=== PATIENT | female | born 1955 | race Caucasian/White ===

== ENCOUNTER 2020-06-03 08:42 | Outpatient (CLI) | payer OTHER, SELFPAY ==
--- NOTE | ~2020-06-03 | MM_ITS ---
EXAMINATION: MM screening [facility] BI w hira HISTORY: Screening mammogram TECHNIQUE: Craniocaudal and mediolateral oblique 3-D tomosynthesis images were obtained and synthetic 2-D images were generated. CAD analysis was submitted and interpreted. COMPARISON: 05/24/2019, 05/10/2018, 05/05/2017 BREAST PARENCHYMAL COMPOSITION: There are scattered areas of fibroglandular density. FINDINGS: There is no evidence of suspicious mass, calcification, or architectural distortion to sugg est malignancy in either breast. There has been no suspicious interval change. IMPRESSION: 1. No mammographic evidence of malignancy. 2. Recommend routine screening mammography in one year. BI-RADS Category 1: Negative Reviewed, dictated and finalized at location A.
--- NOTE | ~2020-06-03 | DEXA_ITS ---
Bone Density Report Name: Natividad Byrd Age: 64 Sex: Female Ethnicity: White Date of : 1955 Indication: osteopenia; hysterectomy; Referring Provider: Sheeba Samson Study: Bone densitometry was performed. Exam Date: June 03, 2020 Accession number: [id number] Bone Density: Region BMD T-score Z-score Classification AP Spine (L1-L4) 0.879 -1.5 0.1 Osteopenia Femoral Neck (Left) 0.765 -0.8 0.6 Normal Total Hip (Left) 0.828 -0.9 0.2 Normal Total Hip Bilateral Avg 0.863 -0.6 0.4 Normal Femoral Neck (Right) 0.721 -1.1 0.2 Osteopenia Total Hip (Right) 0.897 -0.4 0.7 Normal World Health Organization criteria for BMD impression classify patients as: Normal (T-score at or above -1.0), Osteopenia (T-score between -1.0 and -2.5), or Osteoporosis (T-score at or below -2.5). 10-year Fracture Risk(1): Major Osteoporotic Fracture 7.8% Hip Fracture 0.5% Reported Risk Factors: [place] (), Neck BMD=0.721, BMI=25.6 (1) FRAX(R) Version 3.08. Fracture probability calculated for an untreated patient. Fracture probability may be lower if the patient has received treatment. Previous Exams: Region Exam Age BMD T-score BMD Change BMD Change Date g/cm2 vs Baseline vs Previous AP Spine(L1-L4) 06/03/2020 64 0.879 -1.5 -0.054(-5.8%)# 0.003(0.3%) 05/10/2018 62 0.876 -1.6 -0.057(-6.1%)# -0.002(-0.2%) 04/13/2015 59 0.877 -1.5 -0.056(-6.0%)# -0.056(-6.0%)# 12/14/2011 56 0.933 -1.0 Total Hip(Left) 06/03/2020 64 0.828 -0.9 -0.066(-7.3%)# -0.043(-4.9%)* 05/10/2018 62 0.871 -0.6 -0.023(-2.6%)# 0.005(0.6%) 04/13/2015 59 0.866 -0.6 -0.028(-3.1%)# -0.028(-3.1%)# 12/14/2011 56 0.894 -0.4 Total Hip(Right) 06/03/2020 64 0.897 -0.4 -0.014(-1.5%)# 0.004(0.4%) 05/10/2018 62 0.893 -0.4 -0.018(-2.0%)# 0.009(1.1%) 04/13/2015 59 0.884 -0.5 -0.027(-3.0%)# -0.027(-3.0%)# 12/14/2011 56 0.911 -0.3 *Denotes significance at 95% confidence level, LSC for AP Spine = 0.022 g/cm2, LSC for Total Hip = 0.027 g/cm2 Clinical Information Provided by Patient: Has used the following medications: Vitamin D, Calcium Has the following medical conditions: Hysterectomy Patient maximum height was 67 Menopause Age: 53 Onset of menses at age 13 Number of children 2 Impression: The patient has low bone mass, based on the Total Spine T-score. The patient has an estimated ten-year risk of hip fracture of
== END 2020-06-03 08:43 | disposition home or self-care (01) ==
LOC: ANHIMG 08:44
PROVIDERS: PCP Internal Medicine; Visit Provider Student in an Organized Health Care Education/Training Program
DX: Z12.31 Encounter for screening mammogram for malignant neoplasm of breast (principal); Z78.0 Asymptomatic menopausal state; M85.88 Other specified disorders of bone density and structure, other site; M85.851 Other specified disorders of bone density and structure, right thigh
CPT/HCPCS: 77063; 77067; 77080

== ENCOUNTER 2021-06-13 09:59 | Outpatient (CLI) | payer OTHER, SELFPAY ==
--- NOTE | ~2021-06-13 | MM_ITS ---
EXAMINATION: MM screening [facility] BI w hira HISTORY: Screening mammogram TECHNIQUE: Craniocaudal and mediolateral oblique 3-D tomosynthesis images were obtained and synthetic 2-D images were generated. CAD analysis was submitted and interpreted. COMPARISON: 06/03/2020, 05/24/2019, 05/10/2018 BREAST PARENCHYMAL COMPOSITION: There are scattered areas of fibroglandular density. FINDINGS: There is no evidence of suspicious mass, calcification, or architectural distortion to sugg est malignancy in either breast. There has been no suspicious interval change. IMPRESSION: 1. No mammographic evidence of malignancy. 2. Recommend routine screening mammography in one year. BI-RADS Category 1: Negative Reviewed, dictated and finalized at location A.
== END 2021-06-13 10:00 | disposition home or self-care (01) ==
LOC: ANHIMG 10:01
PROVIDERS: PCP Internal Medicine; Visit Provider Student in an Organized Health Care Education/Training Program
DX: Z12.31 Encounter for screening mammogram for malignant neoplasm of breast (principal)
CPT/HCPCS: 77063; 77067

== ENCOUNTER 2021-07-09 06:44 | Day surgery (SDC) | payer OTHER, SELFPAY ==
[2021-06-26 12:54] VITALS: BMI 25.9
[2021-07-09 10:37] VITALS: BP 124/71; PULSE 65; RESP 18; TEMP 36.3; O2SAT 100; BMI 26.0
--- NOTE | 2021-07-09 10:45 | PM.HPGS ---
History of Present Illness History of Present Illness Consent: Risks, benefits, and alternatives have been discussed and questions answered. Patient agrees to proceed with procedure. Chief complaint: neoplasm screening Narrative: Natividad Byrd is a 65 year old female Referred for colon cancer screening. Review of Systems Review of Systems: All systems reviewed & are unremarkable except as noted in HPI and below PMFSH Past Medical History Medical History Hyperlipidemia Surgical History Surgical History History of section x 2 History of dilation and curettage History of hysterectomy Family History Family History Mother Patient's mother is in good health Father Patient's father is in good health Grandparent Diabetes mellitus Carcinoma of colon Social History Social History Smoking status: Never smoker Second hand tobacco smoke exposure: No Alcohol intake: current Alcohol use details: 2x Monthly Substance use: never Living arrangements: with family Spiritual care concerns: No Meds Home Medications and Allergies Home Medications Medication Instructions Recorded Confirmed Type adapalene 0.3 % topical gel 1 applic TOPICAL QPM 03/19/20 07/09/21 History ascorbate calcium (vitamin C) 500 500 mg PO DAILY 03/19/20 07/09/21 History mg tablet calcium carbonate 600 mg calcium 1,200 mg PO DAILY tablet 03/19/20 07/09/21 History (1,500 mg) tablet cholecalciferol (vitamin D3) 25 50 mcg PO DAILY cap 03/19/20 07/09/21 History mcg (1,000 unit) capsule flaxseed oil 1,300 mg-omega 3,6,9 1 cap PO DAILY 03/19/20 07/09/21 History 845 mg-117 mg-117 mg capsule fluticasone propionate 50 2 spray NASAL 2XW 03/19/20 07/09/21 History mcg/actuation nasal spray,suspension loratadine 10 mg tablet 10 mg PO DAILY PRN 03/19/20 07/09/21 History magnesium oxide 250 mg PO DAILY 03/19/20 07/09/21 History psyllium husk 0.52 gram capsule 0.52 gm PO DAILY 03/19/20 07/09/21 History atorvastatin 20 mg tablet 20 mg PO DAILY #90 tablet 05/08/21 07/09/21 Rx estradiol [Estrace] 1 g VAGINAL 2XW 06/26/21 07/09/21 History Allergies Allergy/AdvReac Type Severity Reaction Status Date / Time azithromycin Allergy Mild Unknown Verified 07/09/21 10:36 cat dander Allergy Mild Unknown Verified 07/09/21 10:36 sulfamethoxazole Allergy Mild Unknown Verified 07/09/21 10:36 cefuroxime AdvReac Unknown MUSCLE PAIN Verified 07/09/21 10:36 mold AdvReac Other Verified 07/09/21 10:36 Vital Signs Vital Signs - 24 hr 07/09/21 10:37 Temperature 36.3 C L Pulse Rate 65 Respiratory Rate 18 Blood Pressure 124/71 Pulse Oximetry 100 Exam Resp: Auscultation: clear to auscultation bilaterally Cardio: Rate: regular rate Rhythm: regular rhythm GI: GI Palp: Yes Soft to palpation and No Tenderness to palpation present (GI) Assessment and Plan Assessment and plan (1) Colon cancer screening: Code(s): Z12.11 - Encounter for screening for malignant neoplasm of colon Status: Acute Assessment and Plan: Colonoscopy with possible biopsy or polypectomy or cautery or injection of substances.
[2021-07-09] MEDS: LACTATED RINGERS 1,000 ML 150 ML IV CONT (10:47)
--- NOTE | 2021-07-09 11:01 | WPDANESEPPF ---
Anes - Initial Pre Proc Eval Procedure: Operation Date: 07/09/21 11:30 Proposed Procedures p Screening Colonoscopy - Parminder Parr MD Date/Time: 07/09/21 11:01 Surgeon: Parminder Parr MD Pre Op Diagnosis: neoplasm screening Patient Data Age: 65 Gender: F Height: 1.7 m Weight: 75.4 kg Last Vital Signs Temp 36.3 C L 07/09/21 10:37 Pulse 65 07/09/21 10:37 Resp 18 07/09/21 10:37 BP 124/71 07/09/21 10:37 Pulse Ox 100 07/09/21 10:37 Allergies Allergy/AdvReac Type Severity Reaction Status Date / Time azithromycin Allergy Mild Unknown Verified 07/09/21 10:36 cat dander Allergy Mild Unknown Verified 07/09/21 10:36 sulfamethoxazole Allergy Mild Unknown Verified 07/09/21 10:36 cefuroxime AdvReac Unknown MUSCLE PAIN Verified 07/09/21 10:36 mold AdvReac Other Verified 07/09/21 10:36 Home Medications Medication Instructions Recorded Confirmed Type adapalene 0.3 % topical gel 1 applic TOPICAL QPM 03/19/20 07/09/21 History ascorbate calcium (vitamin C) 500 500 mg PO DAILY 03/19/20 07/09/21 History mg tablet calcium carbonate 600 mg calcium 1,200 mg PO DAILY tablet 03/19/20 07/09/21 History (1,500 mg) tablet cholecalciferol (vitamin D3) 25 50 mcg PO DAILY cap 03/19/20 07/09/21 History mcg (1,000 unit) capsule flaxseed oil 1,300 mg-omega 3,6,9 1 cap PO DAILY 03/19/20 07/09/21 History 845 mg-117 mg-117 mg capsule fluticasone propionate 50 2 spray NASAL 2XW 03/19/20 07/09/21 History mcg/actuation nasal spray,suspension loratadine 10 mg tablet 10 mg PO DAILY PRN 03/19/20 07/09/21 History magnesium oxide 250 mg PO DAILY 03/19/20 07/09/21 History psyllium husk 0.52 gram capsule 0.52 gm PO DAILY 03/19/20 07/09/21 History atorvastatin 20 mg tablet 20 mg PO DAILY #90 tablet 05/08/21 07/09/21 Rx estradiol [Estrace] 1 g VAGINAL 2XW 06/26/21 07/09/21 History Patient hx anesthesia problems: none Family hx anesthesia problems: none PMFSH Past Medical History Medical History Hyperlipidemia Surgical History Surgical History History of section x 2 History of dilation and curettage History of hysterectomy Family History Family History Mother Patient's mother is in good health Father Patient's father is in good health Grandparent Diabetes mellitus Carcinoma of colon Social History Social History Smoking status: Never smoker Second hand tobacco smoke exposure: No Alcohol intake: current Alcohol use details: 2x Monthly Substance use: never Living arrangements: with family Spiritual care concerns: No Anes - Eval Final PreProcedure Day of Procedure 07/09/21 11:01 Patient weight: overweight Heart: regular rate and rhythm Lungs: clear to auscultation Airway: Mallampati scale class II Neurological: alert and oriented Last oral intake: >/= 8 hours ASA classification: II Emergent: no Anesthetic plan: proceed Anesthesia type and monitoring: general GIVS and standard monitoring Informed Consent: The patient's anesthetic plan and its attendant risks and benefits were discussed with the patient/family/POA. Questions were solicited and answers provided to the satisfaction of the patient/family/POA.
[2021-07-09 11:59] VITALS: BP 104/60; PULSE 72; RESP 20; O2SAT 97
[2021-07-09 12:09] VITALS: BP 99/61; PULSE 65; RESP 18; O2SAT 98
[2021-07-09 12:19] VITALS: BP 115/79; PULSE 63; RESP 18; O2SAT 99
== END 2021-07-09 12:25 | disposition home or self-care (01) ==
PROVIDERS: PCP Internal Medicine; Visit Provider Internal Medicine Gastroenterology
PROC: 0DJD8ZZ Inspection of Lower Intestinal Tract, Via Natural or Artificial Opening Endoscopic (ICD-10-PCS; CPT 45378; principal; 2021-07-09 11:30)
DX: Z12.11 Encounter for screening for malignant neoplasm of colon (principal); K63.5 Polyp of colon; K64.8 Other hemorrhoids; E78.5 Hyperlipidemia, unspecified
CPT/HCPCS: 45381; 45385; 88305; J7120

== ENCOUNTER 2022-08-10 14:28 | Outpatient (CLI) | payer OTHER, SELFPAY ==
--- NOTE | ~2022-08-10 | MM_ITS ---
EXAMINATION: MM screening [facility] BI w hira HISTORY: Screening mammogram TECHNIQUE: Craniocaudal and mediolateral oblique 3-D tomosynthesis images were obtained and synthetic 2-D images were generated. CAD analysis was submitted and interpreted. COMPARISON: 06/13/2021, 06/03/2020, 05/24/2019 bilateral screening mammogram examinations BREAST PARENCHYMAL COMPOSITION: There are scattered areas of fibroglandular density. FINDINGS: There is no evidence of suspicious mass, calcification, or architectural distortion to sugg est malignancy in either breast. There has been no suspicious interval change. IMPRESSION: 1. No mammographic evidence of malignancy. 2. Recommend routine screening mammography in one year. BI-RADS Category 1: Negative Reviewed, dictated and finalized at location A.
--- NOTE | ~2022-08-10 | DEXA_ITS ---
Bone Density Report Name: CASA TAYLOR Age: 66 Sex: Female Ethnicity: White Date of : 1955 Indication: osteopenia; hysterectomy; postmenopausal Referring Provider: XENIA CANO Study: Bone densitometry was performed. Exam Date: August 10, 2022 Accession number: [id number] Bone Density: Region BMD T-score Z-score Classification AP Spine(L1-L4) 0.893 -1.4 0.3 Osteopenia Femoral Neck (Left) 0.738 -1.0 0.5 Normal Total Hip (Left) 0.813 -1.1 0.2 Osteopenia Femoral Neck (Right) 0.761 -0.8 0.7 Normal Total Hip (Right) 0.871 -0.6 0.6 Normal Total Hip Mean 0.842 -0.9 0.4 Normal World Health Organization criteria for BMD impression classify patients as: Normal (T-score at or above -1.0), Osteopenia (T-score between -1.0 and -2.5), or Osteoporosis (T-score at or below -2.5). 10-year Fracture Risk(1): Major Osteoporotic Fracture 7.9% Hip Fracture 0.6% Reported Risk Factors: [place] (), Neck BMD=0.738, BMI=26.9 (1) FRAX(R) Version 3.08. Fracture probability calculated for an untreated patient. Fracture probability may be lower if the patient has received treatment. Previous Exams: Region Exam Age BMD T-score BMD Change BMD Change Date g/cm2 vs Baseline vs Previous AP Spine (L1-L4) 08/10/2022 66 0.893 -1.4 -0.040 (-4.3%) 0.014 (1.6%) 06/03/2020 64 0.879 -1.5 -0.054 (-5.8%) 0.003 (0.3%) 05/10/2018 62 0.876 -1.6 -0.057 (-6.1%) -0.002 (-0.2%) 04/13/2015 59 0.877 -1.5 -0.056 (-6.0%) -0.056 (-6.0%) 12/14/2011 56 0.933 -1.0 Total Hip(Left) 08/10/2022 66 0.813 -1.1 -0.081 (-9.0%) -0.015 (-1.8%) 06/03/2020 64 0.828 -0.9 -0.066 (-7.3%) -0.043 (-4.9%) 05/10/2018 62 0.871 -0.6 -0.023 (-2.6%) 0.005 (0.6%) 04/13/2015 59 0.866 -0.6 -0.028 (-3.1%) -0.028 (-3.1%) 12/14/2011 56 0.894 -0.4 Total Hip(Right) 08/10/2022 66 0.871 -0.6 -0.040 (-4.4%) -0.026 (-2.9%) 06/03/2020 64 0.897 -0.4 -0.014 (-1.5%) 0.004 (0.4%) 05/10/2018 62 0.893 -0.4 -0.018 (-2.0%) 0.009 (1.1%) 04/13/2015 59 0.884 -0.5 -0.027 (-3.0%) -0.027 (-3.0%) 12/14/2011 56 0.911 -0.3 *Denotes significance at 95% confidence level, LSC for AP Spine = 0.022 g/cm2, LSC for Total Hip = 0.027 g/cm2 # Denotes dissimilar scan types or analysis methods Clinical Information Provided by Patient: Has the following medical conditions: Hysterectomy Patient maximum height was 67 Menopause Age: 53 Drinks caffeinated beverages Onse
== END 2022-08-10 14:29 | disposition home or self-care (01) ==
LOC: ANHIMG 14:30
PROVIDERS: PCP Internal Medicine; Visit Provider Student in an Organized Health Care Education/Training Program
DX: Z12.31 Encounter for screening mammogram for malignant neoplasm of breast (principal); Z78.0 Asymptomatic menopausal state; M85.88 Other specified disorders of bone density and structure, other site; M85.852 Other specified disorders of bone density and structure, left thigh
CPT/HCPCS: 77063; 77067; 77080

== ENCOUNTER 2023-08-16 13:22 | Outpatient (CLI) | payer MEDICARE, SELFPAY ==
--- NOTE | ~2023-08-16 | MM_ITS ---
EXAMINATION: MM screening [facility] BI w hira HISTORY: Screening TECHNIQUE: Craniocaudal and mediolateral oblique 3-D tomosynthesis images were obtained and synthetic 2-D images were generated. CAD analysis was submitted and interpreted. COMPARISON: Comparison to multiple prior studies sequentially, with oldest reviewed study dated 05/2017. BREAST PARENCHYMAL COMPOSITION: The breasts are heterogeneously dense, which may obscure small masses FINDINGS: There is no evidence of suspicious mass, calcification, or architectural distortion to sugg est malignancy in either breast. There has been no suspicious interval change. IMPRESSION: 1. No mammographic evidence of malignancy. 2. Recommend routine screening mammography in one year. BI-RADS Category 1: Negative Reviewed, dictated and finalized at location A.
== END 2023-08-16 13:23 | disposition home or self-care (01) ==
PROVIDERS: PCP Internal Medicine; Visit Provider Registered Nurse
DX: Z12.31 Encounter for screening mammogram for malignant neoplasm of breast (principal)
CPT/HCPCS: 77063; 77067

== ENCOUNTER 2024-11-09 07:21 | Outpatient (CLI) | payer MEDICARE, SELFPAY ==
--- NOTE | ~2024-11-09 | MM_ITS ---
EXAMINATION: MM screening [facility] BI w hira HISTORY: Screening TECHNIQUE: Craniocaudal and mediolateral oblique 3-D tomosynthesis images were obtained and synthetic 2-D images were generated. CAD analysis was submitted and interpreted. COMPARISON: Comparison to multiple prior studies sequentially, with oldest reviewed study dated 05/10. BREAST PARENCHYMAL COMPOSITION: Not dense: There are scattered areas of fibroglandular density. FINDINGS: There is no evidence of suspicious mass, calcification, or architectural distortion to sugg est malignancy in either breast. There has been no suspicious interval change. IMPRESSION: 1. No mammographic evidence of malignancy. 2. Recommend routine screening mammography in one year. BI-RADS Category 1: Negative Reviewed, dictated and finalized at location B. OR ENGINEERING TECH
== END 2024-11-09 07:22 | disposition home or self-care (01) ==
LOC: ANHIMG 07:24
PROVIDERS: PCP Internal Medicine; Visit Provider Nurse Practitioner Family
DX: Z12.31 Encounter for screening mammogram for malignant neoplasm of breast (principal)
CPT/HCPCS: 77063; 77067

== ENCOUNTER 2025-06-25 10:27 | Outpatient (CLI) | payer OTHER, SELFPAY ==
--- NOTE | 2025-06-25 10:30 | ECG_ITS ---
Test Date: 2025-06-25 10:58:50 Measurements Intervals [place] Rate: 64 P: 47 OR: 151 QRS: 72 QRSD: 94 T: 45 QT: 391 QTc: 406 Interpretive Statements SINUS RHYTHM WARNING: DATA QUALITY MAY AFFECT INTERPRETATION No previous ECG available for comparison Electronically Signed On 06-25-2025 12:46:08 CDT by Timothy Mendez M.D.
--- OUTSIDE RECORDS SUMMARY | 2025-06-25 10:55 | XMS_ITS | Clinical Summary ---
Author Organization [facility] Address [address] [place] [address] Care Team Providers Care Patient Services Representative Name Role Phone Raymond Umana Primary Care Provider Source Comments [facility],non-owned Affiliates and Associated Physician Practices is amultiple site organization consisting of ambulatory clinics and hospital sitesin [place], [place], [place] and [place]. This disclosure is being madepursuant to the Care Everywhere program and may not contain all information available regarding this patient. Last updated 18.[facility] Allergies Active Allergy Reactions Criticality Noted Date Comments Azithromycin Urticaria,Rash Medium 02/07/2019 Cefuroxime Unknown 02/07/2019 Sulfa Drugs Urticaria,Rash Medium 02/07/2019 Medications * Be aware that medications may not be up to date on this document. Alwaysverify current medications with the patient. atorvastatin (LIPITOR) 20 MG tablet Take 20 mg by mouth once daily 11/13/2020 Active estradiol (ESTRACE) 0.1 MG/GM vaginal cream Apply 1 g to affected area Two times a week 10/11/2020 Active ascorbic acid (VITAMIN C) 250 MG tablet Take 250 mg by mouth once daily Active magnesium 250 MG tablet Take 250 mg by mouth once daily Active omega 3 (FISH OIL) 1200 MG capsule Take 1,200 mg by mouth once daily Active Calcium Carbonate-Vit D-Min (CALCIUM 1200 PO) Take 1,200 mg by mouth once daily Active vitamin D, cholecalciferol , 50 MCG (2000 UT) tablet Take 2,000 Units by mouth once daily Active Lactobacillus (PROBIOTIC ACIDOPHILUS) Take 1 tablet by mouth once daily Active famotidine (PEPCID) 20 MG tablet Take 20 mg by mouth once daily Active fluticasone propionate (FLONASE) 50 MCG/ACT nasal spray [place] 2 sprays into each nostril once daily Active Loratadine (CLARITIN) 10 MG Take 10 mg by mouth once daily Active metroNIDAZOLE (METROGEL) 1 % gel 01/29/2021 Active Immunizations Immunization Administration Dates Next Due INFLUENZA VACCINE, QUADR. (F LUZONE; FLULAVAL; FLUARIX; AFLURIA QUADRIVALENT; 6MO+), 0.5 ML (IIV4) 09/09/2020 Family History Medical History Relation Name Comments Asthma Mother Eczema Mother Hyperlipidemia Mother Hypertension Mother Osteoporosis Mother Hyperlipidemia Sister Hypertension Sister Relation Name Status Comments Mother Sister Social History Tobacco Use Types Packs/Day Years Used Date Smoking Tobacco: Never Smokeless Tobacco: Never Alcohol Use Standard Drinks/Week Comments Yes 0 (1 standard drink = 0.6 oz pur e alcohol) AUDIT-C Answer Date Recorded Q1: How often do you have a drink containing alc ohol? 2-4 times a month 12/24/2020 Average Number of Drinks Not on file 021 Frequency of Binge Drinking Not on file 11/30 Comments Unknown Sex and Gender Information Value Date Recorded Sex Assigned at Not on file Legal Sex Female 12:14 PM CDT Gender Identity Not on file Sexual Orientation Not on file Last Filed Vital Signs Vital Sign Reading Time Taken Comments Blood Pressure 129/85 02/04/2021 2:27 PM FURNACE [facility]ER Pulse 85 02/04/2021 2:27 PM [facility]ER Temperature - - Respiratory Rate - - Oxygen Saturation - - Inhaled Oxygen Concentration - - Weight 76.7 kg (169 lb) 02/04/2021 2:27 PM [facility]NACE [facility]ER Height 170.2 cm (5' 7) 02/04/2021 2:27 PM [facility]NACE [facility]ER Body Mass Index 26.47 02/04/2021 2:27 PM FURNACE LINER Plan of Treatment Health Maintenance Due Date Last Done Comments BONE DENSITY TESTING 1955 COLOGUARD (AGES 45-75) - COL ON CA SCREENING 1955 COLON MONITORING 1955 COLONOSCOPY - COLON CA SCREENING 1955 CT COLONOGRAPHY - COLON CA SCREENING 1955 Colorectal Cancer Screening 1955 FIT - COLON CA SCREENING 1955 FLEX SIG - COLON CA SCREENING 1955 MAMMOGRAM 1955 HEPATITIS C SCREENING 10/18/1975 DTAP/TDAP/TD VACCINES (1 - Tdap) 1976 PNEUMOCOCCAL VACCINE 50+ (1 of 1 - PCV) 2007 ZOSTER VACCINE (1 of 2) 2007 SCREENING FOR DIABETES 12/24/2020 COVID-19 VACCINE (1 - 2023-2 5 season) 2024 DEPRESSION SCREENING 11/29/2024 INFLUENZA VACCINE (#1) 2025 09/09/2020 Respiratory Syncytial Virus (RSV) Vaccine Pt: or over 60 yrs (1 - 1-dose 75+ series) 2032 HEPATITIS B VACCINE Aged Out No longe r eligible based on patient's age to complete this topic HIB VACCINE Aged Out No longer eligi ble based on patient's age to complete this topic HPV VACCINE Aged Out No longer eligi ble based on patient's age to complete this topic MENINGOCOCCAL (Group B) VACC INE SHARED DECISION-MAKING Aged Out No longer eligibl e based on patient's age to complete this topic MENINGOCOCCAL GROUPS A/C/Y/W VACCINE Aged Out No longer eligible b ased on patient's age to complete this topic [place] [address] [employer] Care Teams Patient Services Representative Relationship Specialty Start Date End Date Raymond Umana DO [address] [facility] [address] [place] [address] PCP - General Internal Medicine 02/07/19
[2025-06-25 11:14] LABS: Hematocrit 41.0 % (37.0-47.0); Hemoglobin 13.8 g/dL (12.0-15.0)
== END 2025-06-25 10:28 | disposition home or self-care (01) ==
LOC: ANHSURGERY 10:31
PROVIDERS: Anesthesiology; PCP Internal Medicine; Visit Provider Surgery Plastic and Reconstructive Surgery
DX: Z01.818 Encounter for other preprocedural examination (principal); L57.4 Cutis laxa senilis; E78.5 Hyperlipidemia, unspecified
CPT/HCPCS: 36415; 85014; 85018; 93005

== ENCOUNTER 2025-06-28 01:02 | Day surgery (SDC) | payer OTHER, SELFPAY ==
[2025-06-21 13:39] VITALS: BMI 26.9
--- NOTE | 2025-06-21 15:59 | PC.NURSE ---
Report to the Outpatient Waiting Room, entrance under the green pavilion located off [facility], at time __6:00AM____ on date ___06/28/25___. Planned Procedure Time: ___7:30AM____.? Time changes happen often and if your time is changed the preop area will call you the afternoon before. - You and your visitor will be asked to self-screen and do not enter if you have any COVID symptoms. Please call surgeon if you need to reschedule. - A mask is optional within the hospital at this time. Patients may have clear liquids (water, carbonated beverages, clear teas, apple juice) until 3 hours prior to surgery (4:30AM) with a maximum of 20 ounces. - No food from midnight until time of surgery and no smoking, or chewing tobacco (or any form of nicotine). No chewing gum, candy or mints. Take only the following medications with a SIP of water on the morning of surgery: NONE DO NOT STOP ANY OF YOUR OTHER PRESCRIPTION MEDICATIONS PRIOR TO SURGERY EXCEPT THE FOLLOWING Medications to discontinue per physician ___HOLDING ALL VITAMINS/SUPPLEMENTS 3 WEEKS PRE-OP PER DR BARBA Date to take last dose____ALREADY HOLDING PER PATIENT Please no make-up, nail kyrgyz, hairspray, perfume, deodorant, or body powder the day of surgery.? No jewelry (including any body piercings) or valuables the day of surgery, leave them at home.? Please take a shower or bath the night before, or the morning of, surgery with an antibacterial soap.? Wear comfortable, loose fitting clothing.? - Jewelry must be removed prior to entering the operating room.? Rings and piercings that are not removed may be cut off. - The hospital will not accept responsibility for valuables.? - Please leave all valuables, including medications, at home the day of surgery. If you are going home after surgery, a licensed van driver must drive you home.? - NO public transportation without another adult if you receive anesthesia. - We recommend that an adult stay with you for 24 hours following discharge. - We also recommend that you do not drive, make important decision, drink alcoholic beverages, or take any drugs that were not prescribed by your health care provider for at least 24 hours after your discharge time. Follow any additional instructions given to you from your surgeon. Telephone instructions given to ___PATIENT and asked if any additional questions and then verbalized understanding. Patient advised to call surgeon office or pre surgery nurse liaison [phone] if any additional questions.
[2025-06-28] VITALS (11 sets, daily range): BP systolic 106–129; BP diastolic 58–80; PULSE 62–92; RESP 14–16; TEMP 36.6–37.8; O2SAT 92–99
--- OUTSIDE RECORDS SUMMARY | 2025-06-28 01:05 | XMS_ITS | Clinical Summary ---
Author Organization [facility] Address [address] [place] [address] Care Team Providers Care Cuff Runner Name Role Phone Raymond Umana Primary Care Provider Source Comments [facility],non-owned Affiliates and Associated Physician Practices is amultiple site organization consisting of ambulatory clinics and hospital sitesin [place], [place], [place] and [place]. This disclosure is being madepursuant to the Care Everywhere program and may not contain all information available regarding this patient. Last updated 18.[facility] [employer] Allergies Active Allergy Reactions Criticality Noted Date [...] fluticasone propionate (FLONASE) 50 MCG/ACT nasal spray [place] 2 sprays into each nostril once daily [...] Comments Blood Pressure 129/85 02/04/2021 2:27 PM COUNTY AGRICULTURAL AGENT Pulse 85 02/04/2021 2:27 PM COUNTY AGRICULTURAL AGENT Temperature - - Respiratory Rate - - Oxygen Saturation - - Inhaled Oxygen Concentration - - Weight 76.7 kg (169 lb) 02/04/2021 2:27 PM COUNTY AGRICULTURAL AGENT Height 170.2 cm (5' 7) 02/04/2021 2:27 PM COUNTY AGRICULTURAL AGENT Body Mass Index 26.47 02/04/2021 2:27 PM COUNTY AGRICULTURAL AGENT Plan of Treatment Health Maintenance Due Date [...] to complete this topic [place] [address] [employer] Care Teams Cuff Runner Relationship Specialty Start Date End Date Raymond Umana DO [address] [place] [address] PCP - General Internal Medicine 02/07/19
[2025-06-28] MEDS: LACTATED RINGERS 1,000 ML 30 ML IV CONT ×2 (06:40→12:18)
--- NOTE | 2025-06-28 06:41 | W.PM.PROC2 ---
Procedure Note - Detailed Date of Procedure 06/28/25 Pre-op Diagnosis skin laxity Post-op Diagnosis Same Procedure Performed Progressive tension abdominoplasty with suction lipectomy Surgeon Seb Lagunas MD Anesthesia General Findings Tissue removed: 943 grams Lipoaspirate: 3,100 cc Diastasis: 8.5 cm Description of Procedure They are here today for the above procedures. Previously and again today the risks, benefits, alternatives were discussed in extensive detail. I wanted them to be very realistic about the risks involved as well as expectations. Was very honest and clear about limitations given her degree of visceral adiposity and the limitations this could impose on final result. She also understand her previous procedures increase her risks including but not limited to wounds (skin loss / tissue necrosis-tissue ) needing possible senior care wound care / skin grafts and must be willing to accept this prior to proceeding. We discussed aftercare and what to monitor for. I was very upfront about the risks of wound breakdown leading to loss of skin, open wounds, and need for additional procedures with permanent abdominal deformity. We discussed DVT/PE risks and management. Made sure answered all of their questions to their satisfaction today and consent was obtained. They were marked in the preoperative holding area with their verification. The patient was taken to the operating room. Anesthesia was provided by anesthesiology. A Foote catheter was started. Posterior Placed prone on the operating room table with care taken to protect from injury. Prepped and draped in a standard sterile fashion. A surgical time-out was taken. Stab incisions were made and tumescent solution was infiltrated. Once adequate time was allowed for hemostasis a 5mm basket and 4mm cara cannula were utilized to complete suction lipectomy based on S.A.F.E. technique in multiple planes and passes. Suction lipectomy continued to result based on pre-operative planning, intra-operative observation, and rolling pinch test which were in full agreement. Anterior Patient was then placed supine with care taken to protect from injury. I placed the patient in a flexed position to verify the upper and lower markings would reach. I then placed supine. A thorough abdominal examination was completed. Stab incisions were made and tumescent solution infiltrated. Stab incisions were made and tumescent solution was infiltrated. Once adequate time was allowed for hemostasis a 5mm basket and 4mm cara cannula were utilized to complete suction lipectomy based on S.A.F.E. technique in multiple planes and passes. Suction lipectomy continued to result based on pre-operative planning, intra-operative observation, and rolling pinch test which were in full agreement. A 10 blade was used to make the upper incision. I continued dissection down to the level of fascia. Elevated just what was necessary for repair of the diastasis. I then again flexed the bed to verify the upper skin flap would reach the lower markings without tension. Once verified I placed her supine once again and a 10 blade used to make the lower incision. I elevated up to level the umbilicus and left the umbilicus intact on a well-vascularized stalk. The intervening tissue was removed. A 2 mm blunt cannula with 0.5% bupivacaine was injected deep to the fascia bilaterally. I plicated the diastasis recti using 0 PDO Stratafix barbed suture. This was in 2 separate layers using 2 separate sutures as well. After the patient was flexed (below) plicated the fascia with 0 PDO Stratafix in two separate layers transversally superior and inferior to umbilicus. The patient was flexed and starting from superior to inferior began plication using 2-0 Vicryl to obliterate all space in a standard progressive tension fashion. At the umbilicus I marked out the location of the skin and inset this with 3-0 Monocryl and 4-0 Vicryl. I continued the remainder of the plication using 2-0 Vicryl until I reached my lower planned scar line. I trimmed any excess skin of the upper flap making sure this was a tension-free closure. 15 Jorge drain was placed. I then approximated using a 3 point suture with 2-0 Vicryl followed by 2-0 PDO Stratafix, 3-0 Stratafix ,running subcuticular 4-0 Monocryl, and tissue glue. Fluffs and an abdominal binder were placed. The patient was transferred to the bed in a flexed position. Awoken and taken to the PACU without difficulty. All instrument and sponge counts were correct at the end of the case. Estimated Blood Loss 75 Drains Yes (15 Jorge) Packing No Pathology None sent Complications No immediate complications Condition Stable Disposition PACU
--- NOTE | 2025-06-28 07:03 | WPDHPUPDATE1 ---
History and Physical Update Update Date/Time: 06/28/25 07:03 History and Physical has been reviewed, including an updated exam of the patient. There are NO changes in the patient's condition. Risks, benefits, and alternatives have been discussed and questions answered. Patient agrees to proceed with procedure.
--- NOTE | 2025-06-28 07:05 | P.PNAN_ITS ---
Anes - Initial Pre Proc Eval Procedure: Operation Date: 06/28/25 07:30 Proposed Procedures p Abdominoplasty with Liposuction - Seb Lagunas MD Date/Time: 06/28/25 07:05 Surgeon: Seb Lagunas MD Pre Op Diagnosis: skin laxity Patient Data Age: 69 Gender: F Height: 1.7 m Weight: 78 kg Allergies Allergy/AdvReac Type Severity Reaction Status Date / Time azithromycin Allergy Mild RASH Verified 06/21/25 13:34 cat dander Allergy Mild ASTHMA Verified 06/21/25 13:34 SYMPTOMS sulfamethoxazole Allergy Mild RASH Verified 06/21/25 13:34 cefuroxime AdvReac Unknown MUSCLE PAIN Verified 06/21/25 13:34 mold AdvReac Other Verified 06/21/25 13:34 Home Medications ?Medication ?Instructions ?Recorded ?Confirmed ?Type adapalene 0.3 % topical gel 1 applic topical QPM 03/19/20 06/21/25 History ascorbate calcium (vitamin C) 500 500 mg PO DAILY 03/19/20 06/21/25 History mg tablet calcium carbonate (Calcium 600) 1,200 mg PO DAILY 03/19/20 06/21/25 History cholecalciferol (vitamin D3) 25 50 mcg PO DAILY 03/19/20 06/21/25 History mcg (1,000 unit) capsule flaxseed oil 1,300 mg-omega 3,6,9 1 cap PO DAILY 03/19/20 06/21/25 History 845 mg-117 mg-117 mg capsule fluticasone propionate 50 2 spray intranasal DAILY 03/19/20 06/21/25 History mcg/actuation nasal spray,suspension (Flonase Allergy Relief) loratadine 10 mg tablet (Claritin) 10 mg PO DAILY PRN Allergy Symptoms 03/19/20 06/21/25 History magnesium oxide 250 mg PO DAILY 03/19/20 06/21/25 History psyllium husk 0.52 gram capsule 0.52 gm PO DAILY 03/19/20 06/21/25 History (Metamucil) metronidazole 1 % topical gel 1 applic topical DAILY 09/18/21 06/21/25 History (Metrogel) estradiol 0.01% (0.1 mg/gram) 1 g vaginal 2XW #42.5 grams 07/19/24 06/21/25 Rx vaginal cream (Estrace) atorvastatin 20 mg tablet See Rx Instructions .Route 11/10/24 06/21/25 Rx .COMPLEX #90 tabs naphazoline 0.025 %-pheniramine 1 drp EACH EYE QID PRN allergy 04/27/25 06/21/25 Rx 0.3 % eye drops (Naphcon-A) symptoms #15 mL azelastine 137 mcg (0.1 %) nasal 1 spray intranasal HS 06/21/25 06/21/25 History spray Laboratory Tests 06/28/25 06:13 Cotinine Negative Patient hx anesthesia problems: none Family hx anesthesia problems: none Results Review: All pre-operative results and documents have been reviewed as part of the pre- operative evaluation. PMFSH Past Medical History Medical History COVID-19 Anxiety Hyperlipidemia Surgical History Surgical History History of dilation and curettage History of hysterectomy History of section x 2 Family History Family History Mother Patient's mother is in good health Father Patient's father is in good health Grandparent Diabetes mellitus Carcinoma of colon Social History Social History Smoking status: Never smoker Second hand tobacco smoke exposure: No Alcohol intake: current Alcohol use details: 2x Monthly Substance use: never Lack of Transportation: No Lack of Food: Never True Current Housing: I Have Housing Concerned About Future Housing: No Difficulty Paying Gas/Electric Bills: No Difficulty Paying for Meds: No Currently Unemployed: No Education: Master's Degree or Higher Difficulty w/ Childcare or Family Care: No Living arrangements: with family Spiritual care concerns: No Anes - Eval Final PreProcedure Day of Procedure 06/28/25 07:05 Patient weight: overweight Heart: regular rate and rhythm Lungs: clear to auscultation Airway: Mallampati scale class II Neurological: alert and oriented Last oral intake: >/= 8 hours ASA classification: II Emergent: no Anesthetic plan: proceed Anesthesia type and monitoring: general ETT and standard monitoring Results Review: All pre-operative results and documents have been reviewed as part of the pre- operative evaluation. Informed Consent: The patient's anesthetic plan and its attendant risks and benefits were discussed with the patient/family/POA. Questions were solicited and answers provided to the satisfaction of the patient/family/POA.
[2025-06-28] MEDS: TRANEXAMIC ACID 1,000MG/ISO100 1,000 MG/100 ML BAG 200 MG IVPB ×2 (07:10→07:15)
[2025-06-28] MEDS: BUPIVACAINE/EPINEPHRINE 0.5% 50 ML VIAL 60 ML INFILTRATE (07:27)
[2025-06-28] MEDS: CLINDAMYCIN 900 MG/D5W 50 ML 900 MG/50 ML PIGGYBACK 50 MG IVPB (07:27)
[2025-06-28] MEDS: LACTATED RINGERS IRRIG 1,000 ML, LIDOCAINE 1% LOCAL INJ 50 ML, EPINEPHrine HCL INJ 1 MG... INFILTRATE (07:27)
[2025-06-28] MEDS: oxyCODONE HCL (*CRX) 5 MG TAB IR PO (13:54)
== END 2025-06-28 15:00 | disposition home or self-care (01) ==
PROVIDERS: PCP Internal Medicine; Visit Provider Surgery Plastic and Reconstructive Surgery
PROC: (CPT 15830; principal; 2025-06-28 07:30)
DX: Z41.1 Encounter for cosmetic surgery (principal); L57.4 Cutis laxa senilis; M62.08 Separation of muscle (nontraumatic), other site
CPT/HCPCS: 15830; 15847; 15877; 80307; A9270; J0166; J1100; J1171; J1200; J2003; J2250; J2371; J2405; J3010; J7120

== ENCOUNTER 2025-06-30 11:50 | Emergency (ER) | payer MEDICARE, SELFPAY ==
[2025-06-30] VITALS (11 sets, daily range): BP systolic 114–121; BP diastolic 69–79; PULSE 82–88; RESP 16–20; TEMP 36.3; O2SAT 95–98
--- NOTE | ~2025-06-30 | CT_ITS ---
EXAMINATION: CTA chest PE protocol DATE: 06/30/2025 12:51 INDICATION: Shortness of breath following open abdominal plasty TECHNIQUE: Computed tomography (CT) pulmonary angiogram of the chest was performed with 100 mL Omnipa que-350 intravenous contrast. Additional 3D reconstructions utilizing coronal maximum intensity proje ction (MIP) were performed. Automated exposure control and iterative reconstruction technique were em ployed. The dose-length product was 253.74 mGy-cm. COMPARISON: None FINDINGS: No pulmonary embolism. There is a thick band of likely atelectasis at the superior segment right lowe r lobe with progressively thinner as it extends into the posterior basilar segment. There is associat ed volume loss as evident by the architectural distortion of the surrounding pulmonary vasculature an d liver retraction of the major fissure. Additional mild discoid atelectasis in the left lower lobe a nd lingula. No pulmonary edema, pleural effusion or pneumothorax. Heart size is normal. No pericardia l effusion. Thoracic aorta is normal in caliber with no dissection. Calcified subcarinal lymph nodes consistent with old granulomatous disease. No pathologically enlarged thoracic lymphadenopathy. Multi ple splenic calcified lesions consistent with old granulomatous disease. Mild thoracic dextrocurvatur e with moderate spondylosis. IMPRESSION: 1. No pulmonary embolism. 2. Bandlike consolidation in the right lower lobe with associated volume loss and architectural disto rtion favoring atelectasis over pneumonia. Additional mild discoid atelectasis in the left lower lobe and lingula. Reviewed, dictated and finalized at location A. IMPRESSION: 1. No pulmonary embolism. 2. Bandlike consolidation in the right lower lobe with associated volume loss a nd architectural distortion favoring atelectasis over pneumonia. Additional mil d discoid atelectasis in the left lower lobe and lingula.
--- NOTE | 2025-06-30 11:53 | ECG_ITS ---
Test Date: 2025-06-30 11:59:03 Measurements Intervals Unity Rate: 82 P: 55 NM: 132 QRS: 40 QRSD: 95 T: 6 QT: 337 QTc: 394 Interpretive Statements SINUS RHYTHM BORDERLINE ST-T WAVE ABNORMALITY- INFERIOR LEADS BASELINE ARTIFACT- I, II, III, AVR, AVL, AVF BORDERLINE ECG Compared to ECG 06/25/2025 10:58:50 No significant changes Electronically Signed On 06-30-2025 14:52:45 CDT by Servando Pineda D.O.
--- OUTSIDE RECORDS SUMMARY | 2025-06-30 11:53 | XMS_ITS | Clinical Summary ---
Author Organization [facility] Address [address] [place] [address] Care Team Providers Care Plastic Panel Installer Name Role Phone Raymond Umana Primary Care Provider Source Comments [facility],non-owned Affiliates and Associated Physician Practices is amultiple site organization consisting of ambulatory clinics and hospital sitesin [place], [place], [place] and [place]. This disclosure is being madepursuant to the Care Everywhere program and may not contain all information available regarding this patient. Last updated 18.[facility] [employer] Allergies Active Allergy Reactions Criticality Noted Date [...] fluticasone propionate (FLONASE) 50 MCG/ACT nasal spray [place] 2 sprays into each nostril once daily [...] Comments Blood Pressure 129/85 02/04/2021 2:27 PM SPECIAL WARFARE OPERATOR Pulse 85 02/04/2021 2:27 PM SPECIAL WARFARE OPERATOR Temperature - - Respiratory Rate - - Oxygen Saturation - - Inhaled Oxygen Concentration - - Weight 76.7 kg (169 lb) 02/04/2021 2:27 PM SPECIAL WARFARE OPERATOR Height 170.2 cm (5' 7) 02/04/2021 2:27 PM SPECIAL WARFARE OPERATOR Body Mass Index 26.47 02/04/2021 2:27 PM SPECIAL WARFARE OPERATOR Plan of Treatment Health Maintenance Due Date [...] to complete this topic [place] [address] [employer] Care Teams Plastic Panel Installer Relationship Specialty Start Date End Date Raymond Umana DO [address] [place] [address] PCP - General Internal Medicine 02/07/19
[2025-06-30 12:12] LABS: Hematocrit 39.2 % (37.0-47.0); Hemoglobin 12.8 g/dL (12.0-15.0); Immature Granulocyte Percent A 0.4 % (0-0.5); Lymphocytes Absolute Auto 1.73 K/mm3 (0.9-3.2); Mean Corpuscular HGB Conc 32.7 g/dl (32-36); Mean Corpuscular Hemoglobin 31.1 pg (26-34); Mean Corpuscular Volume 95.1 fl (80-100); Nucleated Red Blood Cells Absolute Auto 0.000 K/mm3 (0.0-0.012); Nucleated Red Blood Cells Perc 0.0 % (0.0-0.2); Platelet Count Result 216 k/mm3 (150-375); Red Blood Count 4.12 M/mm3 (4.2-5.4); White Blood Count 13.1 K/mm3 (4.5-10.0)
--- NOTE | 2025-06-30 12:15 | ED_ITS ---
HPI - SOB/Dyspnea General Chief Complaint: Shortness of Breath/Dyspnea Stated Complaint: shortness of breath- abdominoplasty 06/28 Time Seen by Provider: 06/30/25 11:53 History of Present Illness HPI Narrative: 69-year-old female currently postop day 3 from an abdominal plasty with plastic surgeon Dr. Mcfarlane presenting to the emergency department with complaints of shortness of breath. She states that she feels short of breath and feels like it takes extra effort to get a good deep breath. No pain and states that she has had the similar symptoms during previous abdominal surgeries which she states she has had many previous operations. She states usually she gets incentive spirometer to go home with but did not receive 1 during this procedure. She states that her symptoms get better when she sits upright and definitely worse when she lies flat. No painful breathing or pleuritic chest discomfort. No chest tightness. No nausea, vomiting, abdominal pain, back pain. She states she did have to take off her abdominal binder as she was having some difficulty breathing with that. Endorses that she also had lots of new johnson in her hospital yesterday and had allergic reaction to with several coughing fits in the middle of the night. She called her plastic surgeon this morning and discussed concerns for potential infection versus blood clots. She was referred to the emergency department for evaluation. Denies any history of DVT or PE. Not currently on any anticoagulation. Was otherwise in her normal state of health. No fever chills. No productive coughing. Related Data Home Medications ?Medication ?Instructions ?Recorded ?Confirmed ?Last Taken ?Type adapalene 0.3 % topical gel 1 applic topical QPM 03/19/20 06/28/25 06/27/25 History ascorbate calcium (vitamin C) 500 500 mg PO DAILY 03/19/20 06/28/25 06/15/25 History mg tablet calcium carbonate (Calcium 600) 1,200 mg PO DAILY 03/19/20 06/28/25 06/15/25 History cholecalciferol (vitamin D3) 25 50 mcg PO DAILY 03/19/20 06/28/25 06/15/25 History mcg (1,000 unit) capsule flaxseed oil 1,300 mg-omega 3,6,9 1 cap PO DAILY 03/19/20 06/28/25 06/15/25 History 845 mg-117 mg-117 mg capsule fluticasone propionate 50 2 spray intranasal DAILY 03/19/20 06/28/25 06/27/25 History mcg/actuation nasal spray,suspension (Flonase Allergy Relief) loratadine 10 mg tablet (Claritin) 10 mg PO DAILY PRN Allergy Symptoms 03/19/20 06/21/25 07/08/21 History magnesium oxide 250 mg PO DAILY 03/19/20 06/28/25 06/15/25 History psyllium husk 0.52 gram capsule 0.52 gm PO DAILY 03/19/20 06/28/25 06/27/25 History (Metamucil) metronidazole 1 % topical gel 1 applic topical DAILY 09/18/21 06/28/25 06/27/25 History (Metrogel) azelastine 137 mcg (0.1 %) nasal 1 spray intranasal HS 06/21/25 06/28/25 06/27/25 History spray Allergies Allergy/AdvReac Type Severity Reaction Status Date / Time azithromycin Allergy Mild RASH Verified 06/30/25 12:03 cat dander Allergy Mild ASTHMA Verified 06/30/25 12:03 SYMPTOMS sulfamethoxazole Allergy Mild RASH Verified 06/30/25 12:03 cefuroxime AdvReac Unknown MUSCLE PAIN Verified 06/30/25 12:03 mold AdvReac Other Verified 06/30/25 12:03 Review of Systems 2 Review of Systems: As reviewed above in HPI [facility] Past Medical History Medical History COVID-19 Anxiety Hyperlipidemia Surgical History Surgical History History of dilation and curettage History of hysterectomy History of section x 2 Family History Family History Mother Patient's mother is in good health Father Patient's father is in good health Grandparent Diabetes mellitus Carcinoma of colon Social History Social History Smoking status: Never smoker Second hand tobacco smoke exposure: No Alcohol intake: current Alcohol use details: 2x Monthly Substance use: never Lack of Transportation: No Lack of Food: Never True Current Housing: I Have Housing Concerned About Future Housing: No Difficulty Paying Gas/Electric Bills: No Difficulty Paying for Meds: No Currently Unemployed: No Education: Master's Degree or Higher Difficulty w/ Childcare or Family Care: No Living arrangements: with family Additional living arrangements comments: HUSB Spiritual care concerns: No Exam 2 Narrative: GENERAL: [Well-appearing, well-nourished, and in no acute distress.] HEAD: [Normocephalic, atraumatic.] EYES: [PERRLA and EOMI.] ENT: Nares clear, no rhinorrhea or epistaxis. Mucous membranes moist. NECK: Supple. CHEST: Clear breath sounds with good inspiratory effort, no respiratory distress or tachypnea. HEART: [Regular rate and rhythm]. No murmur heard. [Normal peripheral pulses.] ABDOMEN: Soft, nontender, postoperative surgical sites appear clean dry and intact, no abdominal distention or bloating noted EXTREMITIES: Normal range of motion. No edema SKIN: Warm, dry, no rash. NEURO: No focal deficits. Alert and oriented [x3.] PSYCH: Normal Course Vital Signs Vital signs: Vital Signs Temperature 36.3 C L 06/30/25 11:57 Pulse Rate 84 06/30/25 11:57 Respiratory Rate 16 06/30/25 11:57 Blood Pressure 117/71 06/30/25 11:57 Pulse Oximetry 97 06/30/25 11:57 Oxygen Delivery Room Air 06/30/25 11:57 Temperature 36.3 C L 06/30/25 11:57 Pulse Rate 83 06/30/25 13:31 Respiratory Rate 20 06/30/25 13:31 Blood Pressure 116/79 06/30/25 13:31 Pulse Oximetry 98 06/30/25 13:31 Oxygen Delivery Room Air 06/30/25 12:20 MDM - SOB/Dyspnea MDM Narrative Medical decision making narrative: 69-year-old female currently postop day 3 from an abdominal plasty with plastic surgeon Dr. Mcfarlane presenting to the emergency department with complaints of shortness of breath. She states that she feels short of breath and feels like it takes extra effort to get a good deep breath. No pain and states that she has had the similar symptoms during previous abdominal surgeries which she states she has had many previous operations. She states usually she gets incentive spirometer to go home with but did not receive 1 during this procedure. She states that her symptoms get better when she sits upright and definitely worse when she lies flat. No painful breathing or pleuritic chest discomfort. No chest tightness. No nausea, vomiting, abdominal pain, back pain. She states she did have to take off her abdominal binder as she was having some difficulty breathing with that. Endorses that she also had lots of new johnson in her hospital yesterday and had allergic reaction to with several coughing fits in the middle of the night. She called her plastic surgeon this morning and discussed concerns for potential infection versus blood clots. She was referred to the emergency department for evaluation. Denies any history of DVT or PE. Not currently on any anticoagulation. Was otherwise in her normal state of health. No fever chills. No productive coughing. Patient is hemodynamically stable with normal vital signs here no tachycardia, fever, hypoxia, tachypnea or blood pressure concerns. She has an unremarkable physical examination with abdominal surgical scars appearing clear dry and intact. Clear breath sounds throughout without any wheezing or tachypnea. Symptoms likely secondary to postoperative atelectasis especially that she did not receive an incentive spirometer during this encounter but she has had similar symptoms during all her other surgeries alleviated by breathing exercises and therapy. Other differential includes pneumonia, aspiration, pneumothorax, pulmonary embolism. Low suspicion cardiac pathology. Workup ordered including chest x-ray, CBC, CMP, EKG, CT angiography with PE protocol. Patient placed on pulse oximetry and cardiac cath rn. Laboratory studies show a slight leukocytosis of 13.1 which is likely reactive from the surgical procedure rather than infectious in nature. CT angiography shows no signs of a pulmonary embolism and there is a band like consolidation the right lower lobe consistent with atelectasis with architectural distortion and volume loss rather than pneumonia. Patient is not having any coughing or infectious symptoms at this time. She has some minor atelectasis in the left lower lobe as well. Incentive spirometer was provided bedside she felt improved after trying to use it several times. I discussed follow-up instructions with primary doctor and keeping her follow-up with her surgeon as well as return precautions including developing any infectious symptoms such as fevers, productive cough, worsening shortness of breath or any new symptoms like chest discomfort. Patient comfortable the plan and safe for discharge home at this time. Medical Records Attestation: I reviewed the patient's medical records. Lab Data Attestation: I reviewed the patient's lab results. 06/30/25 12:04 06/30/25 12:04 Labs: Lab Results 06/30/25 Range/Units 12:04 WBC 13.1 H (4.5-10.0) K/mm3 RBC 4.12 L (4.2-5.4) M/mm3 Hgb 12.8 (12.0-15.0) g/dL Hct 39.2 (37.0-47.0) % MCV 95.1 (80-100) fl MCH 31.1 (26-34) pg MCHC 32.7 (32-36) g/dl RDW 13.4 (11.5-14.5) % Plt Count 216 (150-375) k/mm3 MPV 9.9 (7.4-10.4) fl Immature Gran % (Auto) 0.4 (0-0.5) % Neut % (Auto) 79.8 H (45.5-73.1) % Lymph % (Auto) 13.2 L (18.3-44.2) % Gaines % (Auto) 5.4 (2.6-8.5) % Eos % (Auto) 0.8 (0-4.4) % Baso % (Auto) 0.4 (0.2-1.2) % Lymph # (Auto) 1.73 (0.9-3.2) K/mm3 Gaines # (Auto) 0.7 H (0.1-0.6) K/mm3 Eos # (Auto) 0.1 (0-0.3) K/mm3 Baso # (Auto) 0.1 (0.0-0.1) K/mm3 Abs Immat Gran (auto) 0.05 H (0.00-0.031) K/mm3 Absolute Neuts (auto) 10.5 H (1.3-6.7) K/mm3 Absolute Nucleated RBC 0.000 (0.0-0.012) K/mm3 Nucleated RBC % 0.0 (0.0-0.2) % Sodium 137 (137-145) mmol/L Potassium 3.6 (3.4-5.0) mmol/L Chloride 104 (98-107) mmol/L Carbon Dioxide 26 (22-30) mmol/L Anion Gap 7 (4-12) mmol/L BUN 21 H (7-17) mg/dL Creatinine 1.03 H (0.7-1.0) mg/dL Estim Creat Clear Calc 52 ml/min Estimated GFR 53 L (59 - ) Glucose 139 H (65-110) mg/dL Calcium 9.3 (8.4-10.2) mg/dL Total Bilirubin 1.3 (0.2-1.3) mg/dL AST 40 H (14-36) U/L ALT 30 (6-35) U/L Alkaline Phosphatase 69 (38-126) U/L Total Protein 7.4 (6.3-8.2) g/dL Albumin 3.9 (3.5-5.1) g/dL Imaging Data Attestation: I personally reviewed and interpreted this imaging study as follows: My impression: Impressions Chest CTA 06/30/25 13:24 IMPRESSION: 1. No pulmonary embolism. 2. Bandlike consolidation in the right lower lobe with associated volume loss and architectural distortion favoring atelectasis over pneumonia. Additional mild discoid atelectasis in the left lower lobe and lingula. Discharge Plan Discharge Clinical Impression: Atelectasis of right lung, Atelectasis of left lung, SOB (shortness of breath) Patient Disposition: Home Condition: Stable Instructions: Antibiotic Form, Atelectasis (ED) Additional Instructions: Your CT scan shows consolidations in the lobes consistent with atelectasis which is compression of the lungs from the anesthesia and surgical procedure which can be solved and treated with some breathing exercises as well as incentive spirometry. Return precautions including developing high-grade fevers, worsening shortness of breath or chest pain starting to cough up any productive material any other concerns and that could be a sign that the atelectasis is started developing pneumonia which is a risk but currently no signs point towards a pneumonia at this time and you can safely go home with follow-up with your regular doctor and incentive spirometer. Keep any follow-up appointment with her surgeon as well. Patient Language: Pakistani Prescriptions: No Action adapalene 0.3 % gel 1 applic TOPICAL QPM calcium carbonate [Calcium 600] 600 mg calcium (1,500 mg) tablet 1,200 mg PO DAILY loratadine [Claritin] 10 mg tablet 10 mg PO DAILY PRN (Reason: Allergy Symptoms) flaxseed oil-omega 3,6,9 1,300 mg-845 mg -117 mg-117 mg capsule 1 cap PO DAILY fluticasone propionate [Flonase Allergy Relief] 50 mcg/actuation spray,suspension 2 spray NASAL DAILY Rx Instructions: administer into each nostril magnesium oxide 250 mg magnesium tablet 250 mg PO DAILY psyllium husk [Metamucil] 0.52 gram capsule 0.52 gm PO DAILY ascorbate calcium (vitamin C) 500 mg tablet 500 mg PO DAILY cholecalciferol (vitamin D3) 25 mcg (1,000 unit) capsule 50 mcg PO DAILY metronidazole [Metrogel] 1 % gel 1 applic topical DAILY atorvastatin 20 mg tablet See Rx Instructions .ROUTE .COMPLEX Qty: 90 3RF Dose Instruction: TAKE 1 TABLET BY MOUTH DAILY Rx Instructions: TAKE 1 TABLET BY MOUTH DAILY Naphcon-A 0.025-0.3 % drops 1 drp EACH EYE QID PRN (Reason: allergy symptoms) Qty: 15 0RF estradiol [Estrace] 0.01 % (0.1 mg/gram) cream 1 g VAGINAL 2XW Qty: 42.5 4RF azelastine 137 mcg (0.1 %) spray,non-aerosol 1 spray intranasal HS Rx Instructions: administer into each nostril Follow-up/Referrals: Praful Vazquez DO [Primary Care Provider] - Time of Disposition: 14:33
[2025-06-30 12:29] LABS: Alanine Aminotransferase 30 U/L (6-35); Albumin Level 3.9 g/dL (3.5-5.1); Alkaline Phosphatase 69 U/L (38-126); Anion Gap 7 mmol/L (4-12); Aspartate Amino Transferase 40 U/L (14-36); Bilirubin,Total 1.3 mg/dL (0.2-1.3); Blood Urea Nitrogen 21 mg/dL (7-17); Calcium 9.3 mg/dL (8.4-10.2); Carbon Dioxide 26 mmol/L (22-30); Chloride 104 mmol/L (98-107); Estimated CRCL calculation 52 ml/min; Estimated Glomerular Filt Rate 53; Glucose 139 mg/dL (65-110); Potassium 3.6 mmol/L (3.4-5.0); Sodium 137 mmol/L (137-145); Total Protein 7.4 g/dL (6.3-8.2)
== END 2025-06-30 14:43 | disposition home or self-care (01) ==
PROVIDERS: Emergency Medicine; Emergency Provider Student in an Organized Health Care Education/Training Program; PCP Internal Medicine
DX: R06.02 Shortness of breath (principal); J98.11 Atelectasis; Z98.890 Other specified postprocedural states; E78.5 Hyperlipidemia, unspecified; Z86.16 Personal history of COVID-19; Z90.710 Acquired absence of both cervix and uterus; Z79.899 Other long term (current) drug therapy
CPT/HCPCS: 36415; 71275; 80053; 85025; 93005; 99284; Q9967

== ENCOUNTER 2025-07-14 21:52 | Emergency (ER) | payer MEDICARE, SELFPAY ==
--- OUTSIDE RECORDS SUMMARY | 2025-07-14 21:54 | XMS_ITS | Clinical Summary ---
Author Organization [facility] Address [address] [place] [address] Care Team Providers Care Legal Investigator Name Role Phone Raymond Umana Primary Care Provider Source Comments [facility],non-owned Affiliates and Associated Physician Practices is amultiple site organization consisting of ambulatory clinics and hospital sitesin [place], [place], [place] and [place]. This disclosure is being madepursuant to the Care Everywhere program and may not contain all information available regarding this patient. Last updated 18.[facility] [employer] Allergies Active Allergy Reactions Criticality Noted Date [...] fluticasone propionate (FLONASE) 50 MCG/ACT nasal spray [place] 2 sprays into each nostril once daily [...] Comments Blood Pressure 129/85 02/04/2021 2:27 PM DIVISION TRAFFIC SUPERINTENDENT Pulse 85 02/04/2021 2:27 PM DIVISION TRAFFIC SUPERINTENDENT Temperature - - Respiratory Rate - - Oxygen Saturation - - Inhaled Oxygen Concentration - - Weight 76.7 kg (169 lb) 02/04/2021 2:27 PM DIVISION TRAFFIC SUPERINTENDENT Height 170.2 cm (5' 7) 02/04/2021 2:27 PM DIVISION TRAFFIC SUPERINTENDENT Body Mass Index 26.47 02/04/2021 2:27 PM DIVISION TRAFFIC SUPERINTENDENT Plan of Treatment Health Maintenance Due Date [...] to complete this topic [place] [address] [employer] Care Teams Legal Investigator Relationship Specialty Start Date End Date Raymond Umana DO [address] [place] [address] PCP - General Internal Medicine 02/07/19
[2025-07-14 21:58] VITALS: BP 112/60; PULSE 105; RESP 17; TEMP 37.1; O2SAT 97
--- NOTE | 2025-07-14 23:35 | PC.NURSE ---
Pt approached triage desk stating that she was leaving due to wait times. Pt states her fever has broken but she will be seen if need be. Pt ambulated to ED exit with steady gait and no signs for concern at this time.
--- OUTSIDE RECORDS SUMMARY | 2025-07-15 00:52 | XMS_ITS | Clinical Summary ---
Author Organization [facility] Address [address] [address] Care Team Providers Care Junior Paralegal Name Role Phone Raymond Umana Primary Care Provider Source Comments [facility],non-owned Affiliates and Associated Physician Practices is amultiple site organization consisting of ambulatory clinics and hospital sitesin [place], [place], [place] and [place]. This disclosure is being madepursuant to the Care Everywhere program and may not contain all information available regarding this patient. Last updated 18.[facility] [employer] Allergies Active Allergy Reactions Criticality Noted Date [...] fluticasone propionate (FLONASE) 50 MCG/ACT nasal spray [place] 2 sprays into each nostril once daily [...] Comments Blood Pressure 129/85 02/04/2021 2:27 PM CLINICAL DATA ASSOCIATE Pulse 85 02/04/2021 2:27 PM CLINICAL DATA ASSOCIATE Temperature - - Respiratory Rate - - Oxygen Saturation - - Inhaled Oxygen Concentration - - Weight 76.7 kg (169 lb) 02/04/2021 2:27 PM CLINICAL DATA ASSOCIATE Height 170.2 cm (5' 7) 02/04/2021 2:27 PM CLINICAL DATA ASSOCIATE Body Mass Index 26.47 02/04/2021 2:27 PM CLINICAL DATA ASSOCIATE Plan of Treatment Health Maintenance Due Date [...] to complete this topic [place] [address] [employer] Care Teams Junior Paralegal Relationship Specialty Start Date End Date Raymond Umana DO [address] [place] [address] PCP - General Internal Medicine 02/07/19
== END 2025-07-14 23:35 | disposition left against medical advice (07) ==
PROVIDERS: PCP Internal Medicine
DX: R50.82 Postprocedural fever (principal)
CPT/HCPCS: 99199

== ENCOUNTER 2025-07-17 09:43 | Outpatient (NON) | payer MEDICARE, SELFPAY ==
--- OUTSIDE RECORDS SUMMARY | 2025-07-17 10:04 | XMS_ITS | Clinical Summary ---
Author Organization [facility] Address [address] [place] [address] Care Team Providers Care Community Fundraiser Name Role Phone Raymond Umana Primary Care Provider [phone] Source Comments [facility],non-owned Affiliates and Associated Physician Practices is amultiple site organization consisting of ambulatory clinics and hospital sitesin [place], [place] and [place]. This disclosure is being madepursuant to the Care Everywhere program and may not contain all information available regarding this patient. Last updated 18.[facility] [employer] Allergies Active Allergy Reactions Criticality Noted Date [...] fluticasone propionate (FLONASE) 50 MCG/ACT nasal spray [place] 2 sprays into each nostril once daily [...] Comments Blood Pressure 129/85 02/04/2021 2:27 PM ESTIMATOR AND DRAFTER Pulse 85 02/04/2021 2:27 PM ESTIMATOR AND DRAFTER Temperature - - Respiratory Rate - - Oxygen Saturation - - Inhaled Oxygen Concentration - - Weight 76.7 kg (169 lb) 02/04/2021 2:27 PM ESTIMATOR AND DRAFTER Height 170.2 cm (5' 7) 02/04/2021 2:27 PM ESTIMATOR AND DRAFTER Body Mass Index 26.47 02/04/2021 2:27 PM ESTIMATOR AND DRAFTER Plan of Treatment Health Maintenance Due Date [...] to complete this topic [place] [address] [employer] Care Teams Community Fundraiser Relationship Specialty Start Date End Date Raymond Umana DO [address] [place] [address] PCP - General Internal Medicine 02/07/19
== END 2025-07-17 09:44 | disposition home or self-care (01) ==
PROVIDERS: PCP Internal Medicine; Visit Provider Internal Medicine
DX: R79.89 Other specified abnormal findings of blood chemistry (principal)
CPT/HCPCS: 87070; 87075; 87205